=== PATIENT | female | born 1950 | race American Indian/Alaskan Native ===

== ENCOUNTER 2017-08-11 14:42 | Emergency (ER) | payer MEDICAID, MEDICARE ==
[2017-08-11 14:42] VITALS: BMI 28.2
[2017-08-11 15:01] VITALS: TEMP 98; O2SAT 99
[2017-08-11] MEDS ORDERED: Sodium Chloride 0.9% 500 ML IV ONE ×2 (15:36→16:21)
[2017-08-11 16:12] LABS: BASO # 0.1 K/uL (0.0-0.2); BASO % 0.5 % (0.0-2.0); EOS % 0.1 % (0.0-4.0); LYMPH % 16.2 % (20.0-40.0); MEAN CELL VOLUME 86.6 fL (81.0-99.0); MEAN CORPUSCULAR HEMOGLOBIN 29.6 pg (27.0-31.0); MEAN CORPUSCULAR HGB CONC 34.2 g/dL (33.0-37.0); MEAN PLATELET VOLUME 7.9 fL (7.2-11.7); MONO % 8.1 % (0.0-10.0); NEUT # 9.2 K/uL (1.8-7.0); NEUT % 75.1 % (50.0-75.0); RBC 4.39 Mil/uL (3.80-5.20); RED CELL DISTRIBUTION WIDTH 14.1 % (11.5-14.5); WHITE BLOOD COUNT 12.2 K/uL (4.8-10.8)
[2017-08-11 16:21] LABS: INR 1.2; PROTHROMBIN TIME 12.9 SECONDS (9.7-12.2)
[2017-08-11 16:29] LABS: INFLUENZA A B NEGATIVE FOR FLU A/B (NEGATIVE)
--- NOTE | 2017-08-11 16:29 | CT ---
PROCEDURE: CT HEAD WITHOUT CONTRAST. HISTORY: llanos COMPARISON: None available. TECHNIQUE: Axial computed tomography images were obtained through the head/brain without intravenous contrast. Radiation dose: Total exam DLP = 908.37 mGy-cm. This CT exam was performed using one or more of the following dose reduction techniques: Automated exposure control, adjustment of the mA and/or kV according to patient size, and/or use of iterative reconstruction technique. FINDINGS: HEMORRHAGE: No intracranial hemorrhage. BRAIN: Normal whitaker-white matter differentiation and density are appreciated throughout the cerebrum and cerebellum with the brainstem appearing unremarkable as well. There is no mass effect. There is no suspicious extra-axial fluid collection and the midline brain anatomy appears diffusely unremarkable. VENTRICLES: Unremarkable. No hydrocephalus. CALVARIUM: Unremarkable. PARANASAL SINUSES: Unremarkable as visualized. No significant inflammatory changes. MASTOID AIR CELLS: Unremarkable as visualized. No inflammatory changes. OTHER FINDINGS: None. IMPRESSION: Unremarkable noncontrast CT of the Head.
[2017-08-11 16:30] LABS: ALB/GLOB RATIO 1.1 (1.0-2.1); ALBUMIN 4.3 g/dL (3.5-5.0); CALCIUM 9.2 mg/dl (8.6-10.4); GFR AFRICAN-AMERICAN > 60; GFR NON-AFRICAN AMERICAN > 60
[2017-08-11 16:39] LABS: SQUAMOUS EPITHIAL 14 /hpf (0-5); URINE BILIRUBIN NEGATIVE (NEGATIVE); URINE BLOOD 2+ (NEGATIVE); URINE CLARITY Hazy (Clear); URINE COLOR Amber (YELLOW); URINE GLUCOSE (UA) NORMAL (Normal); URINE LEUKOCYTE ESTERASE 3+ Leu/uL (Negative); URINE PROTEIN 1+ mg/dL (NEGATIVE); URINE UROBILINOGEN NORMAL mg/dL (0.2-1.0)
[2017-08-11 16:41] LABS: ALT/SGPT 31 U/L (9-52); AST/SGOT 49 U/L (14-36); BLOOD UREA NITROGEN 12 mg/dL (7-17)
--- NOTE | 2017-08-11 16:49 | RAD ---
HISTORY: chills COMPARISON: 05/28/2013 TECHNIQUE: Chest PA and lateral FINDINGS: LUNGS: No active pulmonary disease. PLEURA: No significant pleural effusion identified. No pneumothorax apparent. CARDIOVASCULAR: Normal.Atherosclerotic vascular calcifications present. . OSSEOUS STRUCTURES: No significant abnormalities. VISUALIZED UPPER ABDOMEN: Normal. OTHER FINDINGS: None. IMPRESSION: No active disease.
[2017-08-11] MEDS ORDERED: cefTRIAXone IV 1 gm in Dextros 50 ML IVPB ONE (16:58)
[2017-08-11 17:47] VITALS: BP 140/72; PULSE 74; RESP 20
--- NOTE | 2017-08-11 18:10 | C.PDOC ---
History Of Present Illness 67 y/o female presents to ED with c/o headache, generalized weakness, sore throat and body aches for 2 days. Patient denies fever, chills, nausea, vomiting , dysuria, hematuria or any other complaints at this time. Time Seen by Provider: 08/11/17 15:20 Chief Complaint (Nursing): Headache History Per: Patient History/Exam Limitations: no limitations Onset/Duration Of Symptoms: Days Current Symptoms Are (Timing): Still Present Past Medical History Reviewed: Historical Data, Nursing Documentation, Vital Signs Vital Signs: Last Vital Signs Temp 98 F 08/11/17 14:59 Pulse 74 08/11/17 17:46 Resp 20 08/11/17 17:46 BP 140/72 08/11/17 17:46 Pulse Ox 99 08/11/17 18:13 - Medical History PMH: Asthma, Back Problems, Diabetes, Gastrointestinal Ulcer, Gall Bladder Disease, Pancreatitis Surgical History: No Surg Hx - [facility] Procedures ENDOSC RETROGRADE CHOLANGIOPANCREATOGRAPHY [ERCP] (05/25/13) ENDOSCOPIC SPHINCTEROTOMY AND PAPILLOTOMY (05/25/13) INFLUENZA VACCINATION (02/09/13) LAPAROSCOP LYSIS-PERITONEAL ADHES (05/31/13) LAPAROSCOPIC CHOLECYSTECTOMY (05/31/13) LAPAROSCOPIC ROBOTIC ASSISTED PROCEDURE (05/31/13) VACCINATION NEC (02/09/13) Family History: States: No Known Family Hx - Social History Hx Tobacco Use: No Hx Alcohol Use: No Hx Substance Use: No - Immunization History Hx Tetanus Toxoid Vaccination: No Hx Influenza Vaccination: No Hx Pneumococcal Vaccination: No Review Of Systems Constitutional: Negative for: Fever, Chills ENT: Positive for: Throat Pain Cardiovascular: Negative for: Chest Pain Respiratory: Negative for: Shortness of Breath Gastrointestinal: Negative for: Nausea, Vomiting, Abdominal Pain Neurological: Positive for: Weakness, Headache Physical Exam - Physical Exam Appears: Non-toxic, No Acute Distress Skin: Warm, Dry, No Rash Head: Atraumatic, Normacephalic Eye(s): bilateral: Normal Inspection Ear(s): Bilateral: Normal Oral Mucosa: Moist Throat: Normal, No Erythema, No Exudate Neck: Normal ROM, Supple Cardiovascular: Rhythm Regular Respiratory: Normal Breath Sounds, No Rales, No Rhonchi, No Wheezing Gastrointestinal/Abdominal: Soft, No Tenderness, No Guarding, No Rebound Neurological/Psych: Oriented x3, Normal Speech, Normal Cognition ED Course And Treatment - Laboratory Results Result Diagrams: 08/11/17 16:08 08/11/17 16:08 O2 Sat by Pulse Oximetry: 99 (RA) Pulse Ox Interpretation: Normal Medical Decision Making Medical Decision Making: llanos/sore throat- r/o sterp, influenza, intracranial pathology - labs imaging pending pt reassesd symptoms improved. ct neg. neuro intact no thunderclap. urine treated. advised outpt fu Disposition - Disposition Referrals: [facility] [Outside] [facility] [Outside] Reinier Metzger MD [Staff Provider] - Disposition: HOME/ ROUTINE Disposition Time: 11:00 Condition: STABLE Additional Instructions: return to er with worsening symptoms or concerns. please follow u pwith your doctor/clinic. Prescriptions: Cefpodoxime [Vantin] 100 mg PO BID #20 tab Instructions: Urinary Tract Infections in Adults, Sore Throat in Adults, Headache, Adult (DC), Viral Syndrome (DC) Forms: [facility] (Nepali) - Clinical Impression Clinical Impression: Headache, Pharyngitis, UTI (urinary tract infection) - Scribe Statement The provider has reviewed the documentation as recorded by the Scribramin Nuñez All medical record entries made by the Scribe were at my direction and personally dictated by me. I have reviewed the chart and agree that the record accurately reflects my personal performance of the history, physical exam, medical decision making, and the department course for this patient. I have also personally directed, reviewed, and agree with the discharge instructions and disposition.
== END 2017-08-11 17:46 | disposition home or self-care (01) ==
LOC: C.ER 14:42
DX: J02.9 Acute pharyngitis, unspecified (principal); R51 Headache; N39.0 Urinary tract infection, site not specified; E11.9 Type 2 diabetes mellitus without complications
CPT/HCPCS: 70450; 71046; 80053; 81001; 85025; 85610; 85730; 87070; 87430; 87804; 96365; 99284; J0696; J7040